=== PATIENT | female | born 1990 | race African-American/Black ===

== ENCOUNTER 2024-10-07 16:03 | Emergency (ER) | payer MEDICAID ==
[~2024-10-07] VITALS: Ht 172.7 cm; Wt 61.2 kg
[2024-10-07] MEDS: LORAZEPAM 1 MG TABLET PO ONE (16:30)
[2024-10-07] MEDS ORDERED: LORAZEPAM 1 MG TABLET ONE (16:31)
[2024-10-07 17:09] VITALS: BP 144/98; TEMP 98.3; O2SAT 99
[2024-10-10] MEDS ORDERED: CEPH-570 PO (09:55)
[2024-10-10] MEDS ORDERED: THIA100T88 PO (09:55)
== END 2024-10-07 16:45 | disposition home or self-care (01) ==
LOC: EDBD → ER 16:05
DX: F10.10 Alcohol abuse, uncomplicated (principal); R25.1 Tremor, unspecified; Y90.9 Presence of alcohol in blood, level not specified

== ENCOUNTER 2024-10-08 20:22 | Inpatient (IN) | payer MEDICAID ==
[~2024-10-08] VITALS: Ht 167.6 cm; Wt 63.5 kg
[2024-10-08 21:03] LABS: EOSINOPHILS % (AUTO) 0.4 % (0.0-6.0); HEMATOCRIT 37 % (33-45); HEMOGLOBIN 12.7 g/dL (11.5-14.8); LYMPHOCYTES # (AUTO) 1.2 K/uL (0.8-4.8); LYMPHOCYTES % (AUTO) 24.9 % (20.0-44.0); MEAN CORPUSCULAR HEMOGLOBIN 35 PG (26.0-33.0); MEAN CORPUSCULAR HGB CONC 34 g/dl (31.0-36.0); MEAN CORPUSCULAR VOLUME 102 fL (82-100); MONOCYTES # (AUTO) 0.8 K/uL (0.1-1.30); MONOCYTES % (AUTO) 16.8 % (2.0-12.0); NEUTROPHILS # (AUTO) 2.8 K/uL (1.8-8.9); NEUTROPHILS % (AUTO) 56.9 % (43.0-81.0); PLATELET COUNT (AUTO) 171 K/uL (150-450); RED BLOOD CELL COUNT(AUTO) 3.63 MIL/uL (4.0-5.2); WHITE BLOOD COUNT (AUTO) 4.9 K/uL (4.3-11.0)
[2024-10-08] MEDS ORDERED: Thiamine 100 MG/ML VIAL ONE (21:05)
[2024-10-08] MEDS: Thiamine 100 MG in IV D5W 50 ML IV SCH (21:12)
[2024-10-08] MEDS: IV NS 0.9% 1,000 ML BAG IV ONE (21:12)
[2024-10-08 21:17] LABS: CALCIUM, SERUM 9.8 mg/dL (8.5-10.1); CARBON DIOXIDE 20 mmol/L (21-32); CHLORIDE 99 mmol/L (98-107); CREATININE 0.8 mg/dL (0.6-1.3); GLUCOSE 80 mg/dL (74-106); POTASSIUM 4.1 mmol/L (3.5-5.1); SODIUM SERUM 138 mmol/L (136-145); UREA NITROGEN, BLOOD 11 mg/dL (7-18)
[2024-10-08] MEDS ORDERED: ONDANSETRON HCL/PF 4 MG/2 ML VIAL ONE (21:23)
[2024-10-08 21:25] LABS: ALANINE AMINOTRANSFERASE 134 U/L (12-78); ALBUMIN 4.7 g/dL (3.4-5.0); ALKALINE PHOSPHATASE 85 U/L (46-116); ASPARTATE AMINOTRANSFERASE 200 U/L (15-37); BILIRUBIN,DIRECT 0.4 mg/dL (0.0-0.2); BILIRUBIN,TOTAL 1.6 mg/dL (0.2-1.0)
[2024-10-08 21:27] LABS: SALICYLATE < 0.2 mg/dL (2.8-20.0)
[2024-10-08] MEDS: ONDANSETRON HCL/PF 4 MG/2 ML VIAL IVP ONE (21:28)
[2024-10-08 21:36] LABS: ACETAMINOPHEN <10 ug/ml (10-30); ALCOHOL, BLOOD < 3 mg/dL (0-10)
[2024-10-08] MEDS ORDERED: LORAZEPAM INJ 2 MG/ML VIAL ONE (21:41)
[2024-10-08] MEDS: LORAZEPAM INJ 2 MG/ML VIAL IV ONE (21:48)
[2024-10-08 22:28] LABS: APPEARANCE,URINE SLIGHTLY CLOUDY (CLEAR); BILIRUBIN,URINE 1+ (NEGATIVE); BLOOD, URINE TRACE-INTA Ery/uL (NEGATIVE); COLOR,URINE YELLOW (YELLOW); KETONES,URINE 3+ mg/dL (NEGATIVE); LEUKOCYTE ESTERASE ,URINE TRACE (NEGATIVE); NITRITE, URINE NEGATIVE (NEGATIVE); PROTEIN,URINE 1+ mg/dl (NEGATIVE); UGLUCOSE NEGATIVE (NEGATIVE)
[2024-10-08] MEDS ORDERED: MAGNESIUM HYDROXIDE 30 ML UDC PO PRN (22:30)
[2024-10-08] MEDS ORDERED: ZOLPIDEM TARTRATE 5 MG TABLET PO PRN (22:30)
[2024-10-08] MEDS ORDERED: MAG HYDROX/AL HYDROX/SIMETH 30 ML UDC PO PRN (22:30)
[2024-10-08] MEDS ORDERED: ONDANSETRON HCL/PF 4 MG/2 ML VIAL IVP PRN (22:30)
[2024-10-08] MEDS ORDERED: Z GUARD REMEDY 4 OZ OINT TP PRN (22:30)
[2024-10-08] MEDS ORDERED: ACETAMINOPHEN 325 MG TABLET PO PRN (22:30)
[2024-10-08 22:32] LABS: PREGNANCY TEST URINE QUAL NEGATIVE (NEGATIVE)
[2024-10-08 22:46] LABS: BACTERIA,URINE Many /HPF (None Seen); SQUAMOUS EPITHELIAL CELL,UR Many /HPF (None Seen)
[2024-10-08 22:47] LABS: ADD URINE CULTURE YES; MUCUS,URINE Many /LPF (None Seen)
[2024-10-08 22:56] LABS: EOSINOPHILS % (MANUAL) 1 % (0-4); LYMPHOCYTES % (MANUAL) 22 % (16-48); MONOCYTES % (MANUAL) 11 % (0-11.0); NEUTROPHILS % (MANUAL) 66 (42-76); PLATELET ESTIMATE ADEQUATE
[2024-10-08 22:57] LABS: STOMATOCYTES 1+
[2024-10-08 23:00] VITALS: BP 130/89; TEMP 98.6; O2SAT 99
[2024-10-08 23:21] LABS: AMPHETAMINE, URINE NEGATIVE (NEGATIVE); BARBITURATE, URINE NEGATIVE (NEGATIVE); BENZODIAZEPINE, URINE NEGATIVE (NEGATIVE); CANNABINOID, URINE NEGATIVE (NEGATIVE); COCCAINE, URINE NEGATIVE (NEGATIVE); OPIATE, URINE NEGATIVE (NEGATIVE); PHENCYCLIDINE SCREEN,URINE NEGATIVE (NEGATIVE)
[2024-10-08] MEDS: IV NS 0.9% 1,000 ML IV PRN (23:26)
[2024-10-08] MEDS: CHLORDIAZEPOXIDE HCL 25 MG CAPSULE PO ONE (23:31)
[2024-10-09] MEDS ORDERED: Folic acid 1 MG/0.2 ML VIAL ONE (00:21)
[2024-10-09] MEDS: Folic acid 1 MG in IV D5W 50 ML IV SCH (00:28)
[2024-10-09 00:49] VITALS: BP 130/89; TEMP 98.6; O2SAT 99
[2024-10-09 04:00] VITALS: BP 116/76; TEMP 97.9; O2SAT 99
[2024-10-09] MEDS: CHLORDIAZEPOXIDE HCL 25 MG CAPSULE PO SCH (05:34)
[2024-10-09 05:38] VITALS: BP 116/76; TEMP 97.9; O2SAT 99
[2024-10-09 07:30] VITALS: BP 137/94; TEMP 99; O2SAT 99
[2024-10-09] MEDS: LORAZEPAM INJ 2 MG/ML VIAL IV PRN (07:33)
[2024-10-09] MEDS: THIAMINE HCL 100 MG TABLET PO SCH (08:06)
[2024-10-09 08:35] LABS: BASOPHILS % (AUTO) 0.9 % (0.0-2.0); EOSINOPHILS % (AUTO) 0.4 % (0.0-6.0); HEMATOCRIT 36 % (33-45); HEMOGLOBIN 12.1 g/dL (11.5-14.8); LYMPHOCYTES # (AUTO) 1.1 K/uL (0.8-4.8); LYMPHOCYTES % (AUTO) 28.8 % (20.0-44.0); MEAN CORPUSCULAR HEMOGLOBIN 35 PG (26.0-33.0); MEAN CORPUSCULAR HGB CONC 34 g/dl (31.0-36.0); MEAN CORPUSCULAR VOLUME 105 fL (82-100); MONOCYTES # (AUTO) 0.7 K/uL (0.1-1.30); MONOCYTES % (AUTO) 17.6 % (2.0-12.0); NEUTROPHILS % (AUTO) 52.3 % (43.0-81.0); PLATELET COUNT (AUTO) 138 K/uL (150-450); RED BLOOD CELL COUNT(AUTO) 3.45 MIL/uL (4.0-5.2); RED CELL DISTRIBUTION WIDTH 13.6 % (11.5-15.0); WHITE BLOOD COUNT (AUTO) 3.8 K/uL (4.3-11.0)
[2024-10-09 08:59] LABS: BILIRUBIN,DIRECT 0.4 mg/dL (0.0-0.2); BILIRUBIN,TOTAL 1.5 mg/dL (0.2-1.0); CALCIUM, SERUM 8.8 mg/dL (8.5-10.1); CREATININE 0.7 mg/dL (0.6-1.3); PHOSPHORUS 2.5 mg/dL (2.5-4.9); POTASSIUM 3.8 mmol/L (3.5-5.1); TOTAL PROTEIN, SERUM 7.9 g/dL (6.4-8.2)
[2024-10-09] MEDS: CEPHALEXIN MONOHYDRATE 500 MG CAPSULE PO SCH (10:16)
[2024-10-09 16:00] VITALS: BP 131/96; TEMP 98.6; O2SAT 99
[2024-10-09 20:00] VITALS: BP_SYST 110; BP_SYST 129; BP_DIAS 74; BP_DIAS 80; TEMP 97.2; TEMP 97.5; O2SAT 96
[2024-10-09] MEDS ORDERED: Thiamine 100 MG in IV D5W 50 ML IV SCH (21:00)
[2024-10-10] VITALS: BP 108/71; TEMP 97.9; O2SAT 96; O2SAT 97
[2024-10-10 08:00] VITALS: BP 116/100; TEMP 98.8; O2SAT 99
[2024-10-10] MEDS: FOLIC ACID 1 MG TABLET PO SCH (09:06)
[2024-10-10] MEDS ORDERED: THIA100T88 PO (09:55)
[2024-10-10] MEDS ORDERED: CEPH-570 PO (09:55)
== END 2024-10-10 11:46 | disposition home or self-care (01) | DRG 775 ==
LOC: ER 20:40 → EDBD 22:27 → TELE1 22:27 → TELE 22:43 → MED 10-10 08:17
PROVIDERS: ADMIT Student in an Organized Health Care Education/Training Program; ATTEND Nurse Practitioner Acute Care
DX: F10.139 Alcohol abuse with withdrawal, unspecified (principal); N39.0 Urinary tract infection, site not specified; R74.01 Elevation of levels of liver transaminase levels; B96.89 Other specified bacterial agents as the cause of diseases classified elsewhere; Y90.0 Blood alcohol level of less than 20 mg/100 ml
CPT/HCPCS: 36415; 76705-TC; 80048-TC; 80076-TC; 81001; 82962-TC; 83735-TC; 84100-TC; 84703-TC; 85025-TC; 87086-TC; A4223; G0378; G0480; J2060; J2405; J3411; J3490; J7030; J7060

== ENCOUNTER 2025-03-27 20:08 | Emergency (ER) | payer MEDICAID ==
[~2025-03-27] VITALS: Ht 175.3 cm; Wt 74.8 kg
[~2025-03-27 20:08] MED LIST: CEPH-570 PO; THIA100T88 PO
[2025-03-27 21:16] LABS: PLATELET COUNT (AUTO) 165 K/uL (150-450); RED BLOOD CELL COUNT(AUTO) 3.79 MIL/uL (4.0-5.2); RED CELL DISTRIBUTION WIDTH 15.0 % (11.5-15.0); WHITE BLOOD COUNT (AUTO) 4.2 K/uL (4.3-11.0)
[2025-03-27] MEDS ORDERED: PHENOBARBITAL SODIUM 130 MG/ML VIAL ONE (21:29)
[2025-03-27 21:33] LABS: ASPARTATE AMINOTRANSFERASE 66 U/L (15-37); CALCIUM, SERUM 9.1 mg/dL (8.5-10.1); CREATININE 1.0 mg/dL (0.6-1.3); SODIUM SERUM 132 mmol/L (136-145); TOTAL PROTEIN, SERUM 8.9 g/dL (6.4-8.2); UREA NITROGEN, BLOOD 12 mg/dL (7-18)
[2025-03-27] MEDS: PHENOBARBITAL SODIUM 650 MG in IV NS 0.9% 100 ML IV ONE (21:38)
[2025-03-27] MEDS: LORAZEPAM INJ 2 MG/ML VIAL IV ONE (21:39)
[2025-03-27] MEDS ORDERED: LORAZEPAM INJ 2 MG/ML VIAL ONE (21:40)
[2025-03-27 21:45] LABS: EOSINOPHILS % (MANUAL) 1 % (0-4); LYMPHOCYTES % (MANUAL) 22 % (16-48); MONOCYTES % (MANUAL) 15 % (0-11.0); NEUTROPHILS % (MANUAL) 62 (42-76)
[2025-03-27 21:46] LABS: PLATELET ESTIMATE ADEQUATE
[2025-03-27 23:12] VITALS: BP 10/90; TEMP 98; O2SAT 99
== END 2025-03-27 23:13 | disposition home or self-care (01) ==
LOC: ER 20:10
DX: F10.239 Alcohol dependence with withdrawal, unspecified (principal); Y90.9 Presence of alcohol in blood, level not specified
CPT/HCPCS: 99284; 96365; 85027; 80048; 80076; 85007; 36415; 80143; 98960; J2060; J2560 ×2; J7030 ×2; A4223